=== PATIENT | male | born 1985 | race Caucasian/White ===

== ENCOUNTER 2017-03-06 07:39 | Day surgery (SDC) | payer OTHER ==
[2017-03-06 08:51] VITALS: BMI 31.0
[2017-03-06] MEDS ORDERED: PROPOFOL 20 ML ONE ×2 (09:19)
[2017-03-06] MEDS ORDERED: LIDOCAINE HCL/PF 2% SDV 5ML VIAL INF ONE (09:38)
[2017-03-06 10:23] VITALS: TEMP 97.6
[2017-03-06 12:19] VITALS: BP 122/69; PULSE 69
== END 2017-03-06 10:45 | disposition home or self-care (01) ==
LOC: JASU-ENDO 07:39
PROVIDERS: ATTEND Internal Medicine Gastroenterology
PROC: 06LY4CC Occlusion of Hemorrhoidal Plexus with Extraluminal Device, Percutaneous Endoscopic Approach (ICD-10-PCS; principal; 2017-03-06 08:30)
DX: K64.8 Other hemorrhoids (principal)